=== PATIENT | male | born 1955 | race African-American/Black ===

== ENCOUNTER 2020-08-13 02:06 | Emergency (ER) | payer SELFPAY ==
[~2020-08-13] VITALS: Ht 172.7 cm; Wt 93.0 kg
[2020-08-13] MEDS ORDERED: NITROGLYCERIN 0.4MG TABLET SL SL PRN (02:30)
[2020-08-13] MEDS ORDERED: ASPIRIN 81MG TABLET PO ONE (02:30)
[2020-08-13 02:43] LABS: BASOPHILS % 1.2 % (0.0-2.0); EOSINOPHILS % 2.9 % (0.0-5.0); HEMATOCRIT. 42.2 % (42.0-52.0); HEMOGLOBIN. 14.1 g/dL (14.0-18.0); LYMPHOCYTES % 42.1 % (20.0-50.0); MEAN CORPUSCULAR HEMOGLOBIN 28.2 pg (28.0-32.0); MEAN CORPUSCULAR VOLUME 84.8 fL (80.0-94.0); MEAN PLATELET VOLUME 11.1 fl (7.4-10.4); MONOCYTES % 8.1 % (2.0-8.0); NEUTROPHILS % 45.7 % (40.0-76.0); PLATELET 58 x1000/uL (130-400); RED BLOOD CELL COUNT 4.98 mill/uL (4.7-6.1); RED CELL DISTRIBUTION WIDTH 15.1 % (11.6-14.6)
[2020-08-13 02:48] LABS: CHLORIDE 104 mEq/L (98-107)
[2020-08-13 05:29] VITALS: BP 127/69
== END 2020-08-13 05:30 | disposition home or self-care (01) ==
LOC: ER 02:54
DX: R07.89 Other chest pain (principal); I49.3 Ventricular premature depolarization; R03.0 Elevated blood-pressure reading, without diagnosis of hypertension
CPT/HCPCS: 36415; 71045; 80053; 83880; 84484; 85025; 93005; 99285; Z7610